=== PATIENT | male | born 1985 | race Hispanic/Latino ===

== ENCOUNTER 2022-09-13 15:59 | Emergency (ER) | payer BC ==
[~2022-09-13] VITALS: Ht 177.8 cm; Wt 99.8 kg
[2022-09-13 18:28] VITALS: BP 119/69
[2022-09-13] MEDS ORDERED: CEFAZOLIN SODIUM 2 GM VIAL ONE (19:06)
[2022-09-13] MEDS ORDERED: TETANUS/DIPHTHERIA TOXOID [ADULT] 0.5 ML VIAL IM ONE (19:07)
[2022-09-13] MEDS ORDERED: CEFAZOLIN SODIUM 1 GM VIAL ONE (19:19)
[2022-09-13] MEDS ORDERED: CEFAZOLIN SODIUM 1 GM VIAL IM SCH (19:30)
[2022-09-13] MEDS ORDERED: LIDOCAINE HCL 1% 20 ML VIAL INJ SCH (19:30)
== END 2022-09-13 20:19 | disposition home or self-care (01) ==
LOC: EDH 15:59
DX: S71.112A Laceration without foreign body, left thigh, initial encounter (principal); X58.XXXA Exposure to other specified factors, initial encounter; Y93.89 Activity, other specified; Y92.89 Other specified places as the place of occurrence of the external cause; Y99.8 Other external cause status
CPT/HCPCS: 99284; 90714; 96372; 90471; 12002; J0690 ×2